=== PATIENT | female | born 1970 | race African-American/Black ===

== ENCOUNTER 2021-12-14 16:41 | Outpatient (CLI) | payer BC | END 2021-12-14 16:42 | disposition home or self-care (01) | LOC: CSHRAD 16:41 | PROVIDERS: ATTEND Student in an Organized Health Care Education/Training Program | DX: R07.81 Pleurodynia (principal) | CPT/HCPCS: 71046 ==

== ENCOUNTER 2021-12-15 11:17 | Emergency (ER) | payer BC ==
[2021-12-15] MEDS ORDERED: Acetaminophen 500 MG TAB ONE (12:11)
[2021-12-15] MEDS ORDERED: Ibuprofen 200 MG TAB ONE (12:11)
[2021-12-15 12:58] LABS: Bilirubin Neg (Negative); Blood, Urine 150 (Negative); Clarity Clear (Clear); Glucose, Urine (Dipstick) Normal (Negative); Ketone, Urine 5 mg/dL (Negative); Leukocyte Negative (Negative); Nitrite Negative (Negative); Protein, Urine (Dipstick) 100 mg/dl (Neg-Trace); Specific Gravity, Urine 1.005 (1.002-1.036); Urobilinogen Normal mg/dL (Less than 2)
[2021-12-15 13:05] LABS: WBC/HPF 0-3 HPF (0-3)
[2021-12-15 13:06] LABS: Bacteria/HPF Rare-Few HPF (None Seen); Mucous/LPF 1+ LPF (<2+); Squamous Epithelial 0-3 HPF (0-3)
[2021-12-15 13:12] LABS: ALT (SGPT) 13 U/L (8-55); AST (SGOT) 17 U/L (5-34); Albumin 3.7 g/dL (3.5-5.0); Alkaline Phosphatase 65 U/L (40-110); Anion Gap 13 mmol/L (10-20); BUN (Urea Nitrogen) 9 mg/dL (7.0-18.7); Bilirubin, Total 0.7 mg/dL (0.2-1.2); Calc. Creatinine Clearance 0 mL/min (70-130); Calcium 8.3 mg/dL (7.8-10.44); Carbon Dioxide 24 mmol/L (22-29); Chloride 98 mmol/L (98-107); Globulin 4.1 g/dL (2.4-3.5); Glucose 104 mg/dL (70-105); Potassium 3.7 mmol/L (3.5-5.1); Protein, Total 7.8 g/dL (6.0-8.3); Sodium 131 mmol/L (136-145)
[2021-12-15] MEDS ORDERED: diphenhydrAMINE 50 MG/ML VIAL ONE (14:22)
[2021-12-15] MEDS ORDERED: Metoclopramide HCl 10 MG/2 ML VIAL ONE (14:23)
[2021-12-15 15:15] LABS: #Monocytes 1.6 10x3/uL (0.0-1.1); #Neutrophils 11.3 10x3/uL (1.5-8.4); %Basophils 0.2 % (0.0-2.0); %Lymphocytes 7.7 % (18.0-47.0); %Monocytes 11.6 % (0.0-10.0); Hemoglobin 9.6 g/dL (12.0-15.5); Mean Corpuscular HGB CONC 30.8 g/dL (32.0-36.0); Mean Corpuscular Volume 74.6 fl (81.6-98.3); Mean Platelet Volume 10.6 fl (7.4-10.4); Platelet Count 348 10x3/uL (150-450); RBC Distribution Width 17.8 % (11.5-14.5); Red Blood Cell (RBC) Count 4.18 10x6/uL (3.90-5.03); White Blood Cell (WBC) Count 14.1 10x3/uL (3.5-10.5)
== END 2021-12-15 16:20 | disposition home or self-care (01) ==
LOC: CSHERS 11:17
DX: M79.10 Myalgia, unspecified site (principal); R51.9 Headache, unspecified; R50.9 Fever, unspecified
CPT/HCPCS: 36415; 80053; 81003; 81015; 83605; 85025; 87040; 96374; 96375; J1200; J2765

== ENCOUNTER 2021-12-24 10:02 | Outpatient (CLI) | payer BC | END 2021-12-24 10:03 | disposition home or self-care (01) | LOC: CSHCT 10:02 | PROVIDERS: ATTEND Family Medicine | DX: R51.9 Headache, unspecified (principal) | CPT/HCPCS: 70450 ==

== ENCOUNTER 2022-07-02 07:19 | Outpatient (CLI) | payer BC | END 2022-07-02 07:20 | disposition home or self-care (01) | LOC: CSHLAB 07:19 | PROVIDERS: ATTEND Obstetrics & Gynecology | DX: Z01.812 Encounter for preprocedural laboratory examination (principal); Z20.822 Contact with and (suspected) exposure to COVID-19; D25.9 Leiomyoma of uterus, unspecified | CPT/HCPCS: 84703; 85027; 86850; 86900; 86901; 87811 ==

== ENCOUNTER 2022-07-02 07:30 | Inpatient (IN) | payer BC ==
[2022-07-02 10:05] LABS: Hemoglobin 9.9 g/dL (12.0-15.5); Mean Corpuscular HGB CONC 30.1 g/dL (32.0-36.0); Mean Corpuscular Hemoglobin 22.8 pg (27.0-33.0); Mean Corpuscular Volume 75.8 fl (81.6-98.3); Mean Platelet Volume 10.3 fl (7.4-10.4); Platelet Count 437 10x3/uL (150-450); RBC Distribution Width 18.4 % (11.5-14.5); Red Blood Cell (RBC) Count 4.34 10x6/uL (3.90-5.03); White Blood Cell (WBC) Count 5.1 10x3/uL (3.5-10.5)
[2022-07-02 10:33] LABS: BHCG - Serum Negative (NEGATIVE); Pregs Control Background? CLEAR/WHITE (CLR/WHITE); Pregs Control Bar Appear? YES (CONTROL BAR)
[2022-07-05 11:03] VITALS: BMI 25.5
[2022-07-07] MEDS ORDERED: Gabapentin 300 MG CAP ONE (06:14)
[2022-07-07] MEDS ORDERED: CeleCOXIB 100 MG CAP ONE (06:15)
[2022-07-07] MEDS ORDERED: Lidocaine 1% MPF 2 ML VIAL ONE (06:15)
[2022-07-07] MEDS ORDERED: Famotidine/PF 20 mg/2ml Vial ONE (06:16)
[2022-07-07] MEDS ORDERED: EPINEPHrine 1 MG/ML AMP ONE (06:53)
[2022-07-07] MEDS ORDERED: Bupivacaine PF 0.5% 30 ML VIAL ONE (06:53)
[2022-07-07] MEDS ORDERED: Dexamethasone 4 mg/ml Vial ONE (07:13)
[2022-07-07] MEDS ORDERED: Lidocaine 2% PF 100 mg/5 ml Syringe ONE (07:13)
[2022-07-07] MEDS ORDERED: Ondansetron PF 4 MG/2 ML Vial ONE (07:13)
[2022-07-07] MEDS ORDERED: PROPOFOL 20 ML ONE (07:13)
[2022-07-07] MEDS ORDERED: Rocuronium Bromide 10 MG/ML (10ML VIAL) ONE (07:13)
[2022-07-07] MEDS ORDERED: SUGAMMADEX SODIUM 200 MG/2 ML VIAL ONE (07:16)
[2022-07-07] MEDS ORDERED: HYDROmorphone 0.5 MG/0.5 ML SYRINGE ONE (07:17)
[2022-07-07] MEDS ORDERED: Propofol 1,000 MG/100 ML VIAL IV ONE (07:18)
[2022-07-07] MEDS ORDERED: CEFAZOLIN 2 GM VIAL ONE (07:25)
[2022-07-07] MEDS ORDERED: Methylene Blue 50 MG/10 ML AMPUL ONE (08:25)
[2022-07-07] MEDS ORDERED: fentaNYL Citrate/PF 1,000 MCG, Admixture Fee 1 EACH in Sodium Chloride 0.9% 30 ML IV PRN (08:30)
[2022-07-07] MEDS ORDERED: Ondansetron PF 4 MG/2 ML Vial IVP PRN ×2 (08:30→08:57)
[2022-07-07] MEDS ORDERED: Promethazine HCl 25 MG/ML VIAL IM PRN ×2 (08:30→08:57)
[2022-07-07] MEDS ORDERED: diphenhydrAMINE 25 MG CAP PO PRN ×2 (08:30→08:57)
[2022-07-07] MEDS ORDERED: Zolpidem Tartrate 5 MG TAB PO PRN ×2 (08:30→08:57)
[2022-07-07] MEDS ORDERED: diphenhydrAMINE 50 MG/ML VIAL IM/IV PRN (08:30)
[2022-07-07] MEDS ORDERED: Naloxone HCl 0.4 mg/ml Vial IV PRN (08:30)
[2022-07-07] MEDS ORDERED: Fentanyl 100 MCG/2 ML VIAL ONE (08:51)
[2022-07-07] MEDS ORDERED: Simethicone Chewable 80 MG TAB PO PRN (08:57)
[2022-07-07] MEDS ORDERED: cloNIDine 0.1 MG TAB PO PRN (08:59)
[2022-07-07] MEDS: Sodium Chloride 0.9% 1,000 ML IV SCH ×3 (10:24→21:05)
[2022-07-07] MEDS ORDERED: Ketorolac Tromethamine 30 MG/ML VIAL IVP SCH (12:00)
[2022-07-07] MEDS: Ketorolac Tromethamine 30 MG/ML VIAL IVP SCH ×2 (15:17→21:05)
[2022-07-08] MEDS: Ketorolac Tromethamine 30 MG/ML VIAL IVP SCH ×4 (03:36→21:35)
[2022-07-08] MEDS: Sodium Chloride 0.9% 1,000 ML IV SCH ×2 (05:11→17:42)
[2022-07-08 05:19] LABS: Hemoglobin 8.9 g/dL (12.0-15.5); Mean Corpuscular Hemoglobin 22.9 pg (27.0-33.0); Mean Platelet Volume 9.7 fl (7.4-10.4); Platelet Count 385 10x3/uL (150-450); RBC Distribution Width 18.1 % (11.5-14.5); Red Blood Cell (RBC) Count 3.88 10x6/uL (3.90-5.03)
[2022-07-08] MEDS ORDERED: HYDROcodone/Acetaminophen 5/325 mg Tablet PO PRN (08:43)
[2022-07-08] MEDS ORDERED: Morphine 2 MG/ML VIAL SLOW IVP PRN (08:57)
[2022-07-08] MEDS: HYDROcodone/Acetaminophen 5/325 mg Tablet PO PRN ×2 (09:07→13:14)
[2022-07-09] MEDS: Sodium Chloride 0.9% 1,000 ML IV SCH (03:39)
[2022-07-09] MEDS: Ketorolac Tromethamine 30 MG/ML VIAL IVP SCH ×2 (03:41→08:11)
[2022-07-09 07:58] VITALS: BP 104/67; TEMP 98.9
== END 2022-07-09 08:25 | disposition home or self-care (01) | DRG 743 ==
LOC: CSHERHOLD 07-07 05:29 → CSHPED 07-07 09:56
PROVIDERS: ADMIT Obstetrics & Gynecology; ATTEND Obstetrics & Gynecology
PROC: 0UT90ZL Resection of Uterus, Supracervical, Open Approach (ICD-10-PCS; principal; 2022-07-07)
PROC: 0UT70ZZ Resection of Bilateral Fallopian Tubes, Open Approach (ICD-10-PCS; 2022-07-07)
PROC: 0UT20ZZ Resection of Bilateral Ovaries, Open Approach (ICD-10-PCS; 2022-07-07)
DX: D25.9 Leiomyoma of uterus, unspecified (principal); Z20.822 Contact with and (suspected) exposure to COVID-19; N92.0 Excessive and frequent menstruation with regular cycle; N73.6 Female pelvic peritoneal adhesions (postinfective); D64.9 Anemia, unspecified; Z88.1 Allergy status to other antibiotic agents
CPT/HCPCS: 36415; 84703; 85027; 86850; 86900; 86901; 87811; 88307; C1776; J0171; J0690; J1100; J1170; J1885; J2001; J2405; J2704; J3010; J7050; Q9968; S0020; S0028

== ENCOUNTER 2023-10-07 19:14 | Emergency (ER) | payer BC ==
[2023-10-07] MEDS ORDERED: diphenhydrAMINE 12.5 MG/5 ML UDCUP ONE (21:17)
[2023-10-07 21:42] LABS: Bilirubin Neg (Negative); Blood, Urine 25 (Negative); Clarity Clear (Clear); Glucose, Urine (Dipstick) Normal (Negative); Ketone, Urine Negative (Negative); Leukocyte Negative (Negative); Nitrite Negative (Negative); Protein, Urine (Dipstick) Negative (Neg-Trace); Urobilinogen Normal mg/dL (Less than 2)
[2023-10-07 21:45] LABS: #Eosinphils 0.2 10x3/uL (0.0-0.5); #Monocytes 0.8 10x3/uL (0.0-1.1); #Neutrophils 3.4 10x3/uL (1.5-8.4); %Basophils 0.6 % (0.0-2.0); %Eosinophils 2.8 % (0.0-6.0); %Lymphocytes 31.9 % (18.0-47.0); %Monocytes 11.8 % (0.0-10.0); %Neutrophils 52.6 % (40.0-75.0); ALT (SGPT) 13 U/L (8-55); AST (SGOT) 15 U/L (5-34); Albumin 4.1 g/dL (3.5-5.0); Alkaline Phosphatase 77 U/L (40-110); Anion Gap 13 mmol/L (10-20); BUN (Urea Nitrogen) 11 mg/dL (9.8-20.1); Bilirubin, Total 0.4 mg/dL (0.2-1.2); Calc. Creatinine Clearance 0 mL/min (70-130); Calcium 9.2 mg/dL (7.8-10.44); Carbon Dioxide 27 mmol/L (22-29); Chloride 103 mmol/L (98-107); Estimated GFR 91; Globulin 4.1 g/dL (2.4-3.5); Glucose 109 mg/dL (70-105); Hemoglobin 13.4 g/dL (12.0-15.5); Lipase 15 U/L (8-78); Mean Corpuscular HGB CONC 32.7 g/dL (32.0-36.0); Mean Corpuscular Hemoglobin 30.5 pg (27.0-33.0); Mean Corpuscular Volume 93.2 fl (81.6-98.3); Platelet Count 283 10x3/uL (150-450); Potassium 3.8 mmol/L (3.5-5.1); Protein, Total 8.2 g/dL (6.0-8.3); RBC Distribution Width 12.9 % (11.5-14.5); Sodium 139 mmol/L (136-145); White Blood Cell (WBC) Count 6.4 10x3/uL (3.5-10.5)
[2023-10-07 21:53] LABS: Bacteria/HPF None Seen HPF (None Seen); CAUTI Indications for Culture Pelvic or flank pain; RBC/HPF 0-3 HPF (0-3); Squamous Epithelial 0-3 HPF (0-3); WBC/HPF 0-3 HPF (0-3)
[2023-10-07 21:54] LABS: Urine Culture Reflex No No
== END 2023-10-07 23:09 | disposition home or self-care (01) ==
LOC: CSHERS 19:14
DX: N76.0 Acute vaginitis (principal)
CPT/HCPCS: 36415; 80053; 81001; 83690; 85025; 87480; 87510; 87660; 99283; Q0163

== ENCOUNTER 2023-10-15 04:34 | Emergency (ER) | payer BC ==
[2023-10-15 05:37] LABS: #Eosinphils 0.2 10x3/uL (0.0-0.5); #Monocytes 0.8 10x3/uL (0.0-1.1); #Neutrophils 2.8 10x3/uL (1.5-8.4); %Basophils 0.7 % (0.0-2.0); %Eosinophils 4.4 % (0.0-6.0); %Monocytes 14.2 % (0.0-10.0); %Neutrophils 51.3 % (40.0-75.0); Hematocrit 42.8 % (34.9-44.5); Hemoglobin 14.6 g/dL (12.0-15.5); Mean Corpuscular HGB CONC 34.1 g/dL (32.0-36.0); Mean Corpuscular Hemoglobin 31.1 pg (27.0-33.0); Mean Corpuscular Volume 91.1 fl (81.6-98.3); Mean Platelet Volume 10.2 fl (7.4-10.4); Platelet Count 279 10x3/uL (150-450); RBC Distribution Width 12.8 % (11.5-14.5); White Blood Cell (WBC) Count 5.5 10x3/uL (3.5-10.5)
[2023-10-15 05:46] LABS: Anion Gap 16 mmol/L (10-20); BUN (Urea Nitrogen) 6 mg/dL (9.8-20.1); Calc. Creatinine Clearance 0 mL/min (70-130); Calcium 9.7 mg/dL (7.8-10.44); Carbon Dioxide 25 mmol/L (22-29); Chloride 102 mmol/L (98-107); Estimated GFR 87; Glucose 99 mg/dL (70-105); Potassium 3.7 mmol/L (3.5-5.1); Sodium 139 mmol/L (136-145)
== END 2023-10-15 06:48 | disposition home or self-care (01) ==
LOC: CSHERS 04:34
DX: R00.2 Palpitations (principal); R53.83 Other fatigue
CPT/HCPCS: 71045; 80048; 83735; 84443; 85025; 93005; 93010